=== PATIENT | female | born 1955 | race Caucasian/White ===

== ENCOUNTER 2023-07-11 08:30 | Outpatient (RCR) | payer OTHER, SELFPAY | END 2023-11-08 23:59 | disposition home or self-care (01) | PROVIDERS: PCP Family Medicine; Visit Provider Family Medicine | DX: M51.36 Other intervertebral disc degeneration, lumbar region (principal); M54.41 Lumbago with sciatica, right side; Z51.89 Encounter for other specified aftercare | CPT/HCPCS: 97110; 97140; 97162 ==

== ENCOUNTER 2024-04-09 08:23 | Outpatient (CLI) | payer BC, SELFPAY | END 2024-04-09 08:24 | disposition home or self-care (01) | PROVIDERS: PCP Family Medicine; Visit Provider Family Medicine | DX: M54.16 Radiculopathy, lumbar region (principal); M51.369 Other intervertebral disc degeneration, lumbar region without mention of lumbar back pain or lower extremity pain | CPT/HCPCS: 62323; J0702; Q9966 ==